=== PATIENT | female | born 1975 | race Two or more races ===

== ENCOUNTER 2019-04-14 18:03 | Emergency (ER) | payer OTHER ==
[~2019-04-14] VITALS: Ht 152.4 cm; Wt 69.7 kg
--- NOTE | 2019-04-14 20:14 | NUR ---
PT CALLED TO ROOM FROM LOBBY
--- NOTE | 2019-04-14 20:38 | NUR ---
pt to ed for left sided intermittent chest pressure rad to back and shoulder. pt states worse with movement, deep breathing and palpation. relieved with ibuprofen and rest. pt connected to [facility]. Dr. Reynolds to bs for assessment. awaiting ordrs.
[2019-04-14 20:40] VITALS: BP 141/74
[2019-04-14] MEDS ORDERED: thyroid supplement (20:41)
[2019-04-14 21:16] LABS: BASOPHILS # (AUTO) 0.03 x10^3/uL (0-0.1); BASOPHILS % (AUTO) 1 % (0-1); EOSINOPHILS # (AUTO) 0.18 x10^3/uL (0-0.4); EOSINOPHILS % (AUTO) 4 % (1-7); LYMPHOCYTES # (AUTO) 1.73 x10^3/uL (1-3.4); LYMPHOCYTES % (AUTO) 34 % (22-44); MD NO; MEAN CORPUSCULAR HEMOGLOBIN 31.3 pg (27.0-34.8); MEAN CORPUSCULAR HGB CONC 33.3 g/dL (32.4-35.8); MEAN CORPUSCULAR VOLUME 94.1 fL (80-100); MEAN PLATELET VOLUME 7.9 fL (7.4-10.4); MONOCYTES # (AUTO) 0.46 x10^3/uL (0.2-0.8); MONOCYTES % (AUTO) 9 % (2-9); NEUTROPHILS # (AUTO) 2.65 x10^3/uL (1.8-6.8); NEUTROPHILS % (AUTO) 53 % (42-75); PLATELET COUNT 336 x10^3/uL (130-400); RED BLOOD COUNT 4.15 x10^6/uL (3.82-5.3); RED CELL DISTRIBUTION WIDTH 13.1 % (9.6-15.2)
[2019-04-14 21:19] LABS: ANION GAP 7 mmol/L (5-15); CHLORIDE 109 mmol/L (98-107); CREATININE 0.84 mg/dL (0.55-1.02)
[2019-04-14 21:22] LABS: TROPONIN I < 0.015 ng/mL (0.000-0.045)
== END 2019-04-14 21:40 | disposition home or self-care (01) ==
LOC: ED 21:00
DX: M25.512 Pain in left shoulder (principal); R07.89 Other chest pain; E03.9 Hypothyroidism, unspecified
CPT/HCPCS: 36415; 71045; 80048; 82040; 84484; 85025; 93005; 99284